=== PATIENT | female | born 1955 | race African-American/Black ===

== ENCOUNTER 2021-06-09 09:40 | Emergency (ER) | payer OTHER ==
[~2021-06-09] VITALS: Ht 157.5 cm; Wt 95.0 kg
[2021-06-09 12:14] LABS: BASOPHILS % 0.4 % (0.0-2.0); EOSINOPHILS % 2.9 % (0.0-5.0); HEMATOCRIT. 36.2 % (36.0-48.0); HEMOGLOBIN. 11.8 g/dL (12.0-16.0); LYMPHOCYTES % 44.5 % (20.0-50.0); MEAN CORPUSCULAR HEMOGLOBIN 26.4 pg (28.0-32.0); MEAN PLATELET VOLUME 7.9 fl (7.4-10.4); NEUTROPHILS % 46.2 % (40.0-76.0); PLATELET 242 x1000/uL (130-400); RED BLOOD CELL COUNT 4.47 mill/uL (4.2-5.4); RED CELL DISTRIBUTION WIDTH 15.4 % (11.6-14.6)
[2021-06-09 12:22] LABS: CHLORIDE 108 mEq/L (98-107)
[2021-06-09 12:31] LABS: T4 FREE 0.87 ng/dL (0.76-1.46)
[2021-06-09 20:00] VITALS: BP 163/76
[2021-06-09] MEDS ORDERED: IOHEXOL-350 100 ML BOTTLE ONE (21:13)
== END 2021-06-09 20:37 | disposition home or self-care (01) ==
LOC: ER 09:40
DX: R06.02 Shortness of breath (principal); R07.89 Other chest pain; E11.9 Type 2 diabetes mellitus without complications
CPT/HCPCS: 36415; 71045; 71275; 80053; 82962; 83880; 84439; 84443; 84484; 85025; 85379; 93005; 99285; Q9967; Z7610